=== PATIENT | female | born 1980 | race Caucasian/White ===

== ENCOUNTER 2024-09-18 16:07 | Emergency (ER) | payer SELFPAY ==
[~2024-09-18] VITALS: Ht 175.3 cm; Wt 84.1 kg
[2024-09-18 16:35] VITALS: TEMP 98.5
[2024-09-18 17:23] LABS: BASOPHILS % (AUTO) 0.6 % (0-1); EOSINOPHILS # (AUTO) 0.1 X10'3 (0-0.9); EOSINOPHILS % (AUTO) 1.7 % (0-6); HEMATOCRIT 40.8 % (35.0-45.0); HEMOGLOBIN 13.5 g/dl (12.0-16.0); LYMPHOCYTES # (AUTO) 3.2 X10'3 (1.1-4.8); LYMPHOCYTES % (AUTO) 38.8 % (21-51); MEAN CORPUSCULAR HEMOGLOBIN 27.9 PG (27.0-31.0); MEAN CORPUSCULAR VOLUME 84.5 FL (78-98); MEAN PLATELET VOLUME 9.2 FL (7.4-10.4); MONOCYTES # (AUTO) 0.8 X10'3 (0-0.9); MONOCYTES % (AUTO) 9.5 % (2-12); NEUTROPHILS # (AUTO) 4.1 X10'3 (1.8-7.7); NEUTROPHILS % (AUTO) 49.4 % (42-75); PLATELET COUNT 314 X10'3 (140-440); RED BLOOD COUNT 4.82 X10'6 (4.20-5.60); RED CELL DISTRIBUTION WIDTH 12.5 % (11.5-14.5); WHITE BLOOD COUNT 8.3 X10'3 (4.5-11.0)
[2024-09-18 17:40] LABS: ALANINE AMINOTRANSFERASE 25 U/L (12-78); ALBUMIN/GLOBULIN RATIO 1.2 (1.1-1.5); ALKALINE PHOSPHATASE 84 IU/L (46-116); ANION GAP 7 (8-16); ASPARTATE AMINO TRANSFERASE 27 U/L (10-37); BILIRUBIN,TOTAL 0.3 MG/DL (0.1-1.0); BLOOD UREA NITROGEN 10 MG/DL (7-18); CALCIUM 8.7 MG/DL (8.5-10.1); CHLORIDE 101 MMOL/L (99-107); CREATININE 0.77 MG/DL (0.40-0.90); GLUCOSE 103 MG/DL (70-104); LIPASE 32 U/L (16-77); POTASSIUM 3.4 MMOL/L (3.5-5.1); SODIUM 140 MMOL/L (135-145); TOTAL CARBON DIOXIDE 32.3 MMOL/L (24-32); TOTAL PROTEIN 7.4 G/DL (6.4-8.2); eCRCL 100 ML/MIN; eGFR 83 ML/MIN
[2024-09-18 18:58] LABS: BILIRUBIN,URINE NEGATIVE (Neg); CLARITY,URINE CLEAR (Clear); COLOR,URINE YELLOW (Yellow); GLUCOSE, URINE NEGATIVE (Neg); KETONES,URINE NEGATIVE (Neg); LEUKOCYTE ESTERASE ,URINE TRACE (Neg); NITRITES, URINE NEGATIVE (Neg); OCCULT BLOOD,URINE TRACE-INTACT (Neg); PROTEIN,URINE NEGATIVE (Neg); URINE HCG NEGATIVE (NEG); UROBILINOGEN,URINE 0.2 E.U/dL (0.2-1.0)
[2024-09-18 19:09] LABS: UA COLLECTION TYPE CLN CATCH MIDSTREAM
[2024-09-18 19:10] VITALS: BP 132/62; PULSE 62; RESP 15; O2SAT 100
[2024-09-18 19:11] LABS: BACTERIA,URINE FEW /HPF (Neg); SQUAMOUS EPITHELIAL CELL,UR MODERATE /LPF (FEW)
[2024-09-18 19:12] LABS: RBC,URINE 0-2 /HPF (0-2); WBC,URINE 0-4 /HPF (0-4)
--- NOTE | 2024-09-18 20:10 | Physician Documentation ---
History of Present Illness ~ Chief Complaint: Abdominal Pain w/vomiting Stated Complaint: ABD PAIN Time Seen by MD: 19:58 HPI Patient presents to the emergency room with epigastric pain for the past four days associated with food intake. Patient reports distant history of reflux. She has not had an ultrasound. She was concern for possible gallstones. No nausea or vomiting Medication Reconciliation Allergies: Coded Allergies: Sulfa (Sulfonamide Antibiotics) (Verified Allergy, Unknown, HIVES, 09/18/24) Review of Systems ROS All review of systems negative except as per HPI Physical Exam Vital Signs: Temperature: 98.5, Heart Rate: 76, Respiratory Rate: 15, BP: 15 6/85, Pulse Oximetry: 100, Weight: 84.090 Oxygen Flow Rate: 0 Physical Exam General: Patient is awake, alert, oriented x4 in no acute distress and well appearing.~ Head: Normocephalic and atraumatic. Eyes: Conjunctival normal. EOMI. PERRL. ENT: Mucous membranes moist. Neck: Supple, trachea is midline. Chest: Clear to auscultation bilaterally without rales, rhonchi, or wheezes. There is no accessory muscle use or retractions. Cardiac: RRR without murmurs, gallops, or rubs. Abd: Soft, nondistended, nontender, with normoactive bowel sounds. No guarding, rebound, or rigidity. Progress Results/Orders Results/Orders Orders - JAKE SEGUNDO MD Ultrasound Of Abdomen (09/18/24 20:12) Completed Orders - JAKE SEGUNDO MD Ultrasound Of Abdomen (09/18/24 20:12) Famotidine Tablet (Pepcid Tablet) (09/18/24 20:15) Medications Received in ER Medications (Trade) Dose Ordered Sig/Shayla Route PRN Reason Start Time Stop Time Status Last Admin Dose Admin (Pepcid tablet) 40 mg ONCE ONCE PO 09/18/24 20:15 09/18/24 20:16 DC 09/18/24 20:24 40 MG Vital Signs 09/18/24 09/18/24 16:35 19:10 Temp 98.5 Pulse 76 62 Resp 15 15 B/P (MAP) 156/85 132/62 (85) Pulse Ox 100 100 O2 Flow Rate 0 Laboratory Tests Test 09/18/24 16:38 09/18/24 16:47 Urine Specimen Description Cln catch midstream Urine Color Yellow Urine Clarity Clear Urine pH 6.0 Urine Specific [place] 1.020 Urine Protein Negative Urine Glucose (UA) Negative Urine Ketones Negative Urine Occult Blood Trace-intact Urine Nitrite Negative Urine Bilirubin Negative Urine Urobilinogen 0.2 Urine Leukocyte Esterase Trace H Urine RBC 0-2 Urine WBC 0-4 Urine Squamous Epithelial Cells Moderate Urine Bacteria Few Urine Culture Indicated Indicated Volume Urine Centrifuged 10 ml Urine HCG, Qualitative Negative Urine Comment White Blood Count 8.3 Red Blood Count 4.82 Hemoglobin 13.5 Hematocrit 40.8 Mean Corpuscular Volume 84.5 Mean Corpuscular Hemoglobin 27.9 Mean Corpuscular Hemoglobin Concent 33.0 Red Cell Distribution Width 12.5 Platelet Count 314 Mean Platelet Volume 9.2 Neutrophils (%) (Auto) 49.4 Lymphocytes (%) (Auto) 38.8 Monocytes (%) (Auto) 9.5 Eosinophils (%) (Auto) 1.7 Basophils (%) (Auto) 0.6 Neutrophils # (Auto) 4.1 Lymphocytes # (Auto) 3.2 Monocytes # (Auto) 0.8 Eosinophils # (Auto) 0.1 Basophils # (Auto) 0.0 CBC Comment Sodium Level 140 Potassium Level 3.4 L Chloride Level 101 Carbon Dioxide Level 32.3 H Anion Gap 7 L Blood Urea Nitrogen 10 Creatinine 0.77 Estimated GFR/1.73 m2 83 BUN/Creatinine Ratio 13.0 Glucose Level 103 Calcium Level 8.7 Total Bilirubin 0.3 Aspartate Amino Transf (AST/SGOT) 27 Alanine Aminotransferase (ALT/SGPT) 25 Alkaline Phosphatase 84 Total Protein 7.4 Albumin 4.0 Globulin 3.4 Albumin/Globulin Ratio 1.2 Lipase 32 Chemistry Comments Microbiology Date/Time Source Procedure Growth Status 09/18/24 19:13 Urine Clean Catch Midstream Urine Culture - Preliminary Culture received. Resulted Medical Decision Making Findings Patient presents to the emergency room with epigastric pain that she associates with eating. No current pain. She does have a follow up scheduled with her doctor in October. Today she had an episode of pain after eating she was hoping to get a referral to possible surgery for cholecystitis if she does not suffering for cholecystitis. Differentials other than cholecystitis include but are not limited to diverticulitis gastritis kidney stone pancreatitis therefore labs ordered which were reassuring. Ultrasound reassuring for no gallstones. Possibility of biliary dyskinesia. I do not feel patient requires a CT scan as patient is currently asymptomatic. Possible gastritis and we will put on a course of Protonix. ER precautions discussed Departure Disposition: HOME / SELF CARE / HOMELESS Impression: Primary Impression: Abdominal pain Condition: Stable Discharge Instructions: Abdominal Pain (Nonspecific) Referrals: NO PRIMARY CARE PROVIDER (PCP) Prescriptions Pantoprazole Sodium (Protonix) 20 Mg Tablet.dr 1 TAB PO DAILY, #20 TAB 0 Refills Prov: JAKE SEGUNDO MD 09/18/24 Education Educated: Patient Educated regarding: diagnosis, treatment, need for follow up Signature Scribe Signature: No scribe Attestation: The note accurately reflects work and decisions made by me.Jake Segundo MD 09/18/24 21:57 JAEK SEGUNDO MD September 18, 2024 20:10
[2024-09-18] MEDS: famotidine 20mg tablet PO ONE (20:24)
[2024-09-18] MEDS ORDERED: PANT20TA18 PO (21:57)
--- NOTE | 2024-09-18 23:58 | RADIOLOGY REPORT ---
Clinical History possible cholecystitis Comparison None Technique: Standard grayscale images were acquired in multiple planes with additional Doppler interro gation when appropriate. Without Contrast CORINA VELASQUEZ, [id number] Findings: Liver: No mass or ductal dilatation. Gallbladder: No gallstones, wall thickening or pericholecystic fluid. Common bile duct: Within normal limits. Right kidney: No kidney stone or hydronephrosis. Pancreas: Visualized portion is within normal limits. Aorta: No aneurysm. IVC: Unremarkable Impression: 1. No gallstones. 2. No kidney stones or hydronephrosis This report was electronically signed by Yari Jha MD on 09/18/2024 11:55:42 PM.
== END 2024-09-18 22:10 | disposition home or self-care (01) ==
LOC: ER 16:09
DX: R10.13 Epigastric pain (principal); Z88.2 Allergy status to sulfonamides
CPT/HCPCS: 36415; 76700; 80053; 81001; 81025; 83690; 85025; 87088; 99284